=== PATIENT | female | born 1980 | race Caucasian/White ===

== ENCOUNTER 2019-12-15 20:55 | Emergency (ER) | payer OTHER | END 2019-12-15 21:32 | disposition home or self-care (01) | LOC: ER 20:55 | DX: Z11.59 Encounter for screening for other viral diseases (principal) | CPT/HCPCS: 99283; C9803; U0003 ==

== ENCOUNTER 2019-12-24 14:43 | Emergency (ER) | payer OTHER ==
[~2019-12-24] VITALS: Ht 152.4 cm; Wt 54.4 kg
[2019-12-24 14:50] VITALS: BP 155/111
--- NOTE | 2019-12-24 15:15 | NUR ---
COVID SWAB OBTAINED AND SENT TO LAB.
--- NOTE | 2019-12-24 15:25 | NUR ---
Patient discharged to home in stable condition. Written and verbal after care instructions given. Patient verbalizes understanding of instruction.
== END 2019-12-24 15:26 | disposition home or self-care (01) ==
LOC: ER 14:46
DX: Z03.818 Encounter for observation for suspected exposure to other biological agents ruled out (principal)
CPT/HCPCS: 99283; C9803; U0003

== ENCOUNTER 2020-01-11 16:15 | Emergency (ER) | payer OTHER ==
[~2020-01-11] VITALS: Ht 152.4 cm; Wt 54.4 kg
[2020-01-11 16:30] VITALS: BP 129/79
--- NOTE | 2020-01-11 16:51 | NUR ---
COVID SWAB DONE AND SENT TO LAB
--- NOTE | 2020-01-11 16:52 | NUR ---
Patient discharged to home in stable condition. Written and verbal after care instructions given. Patient verbalizes understanding of instruction. Pt ambulatory with a steady gait
== END 2020-01-11 16:52 | disposition home or self-care (01) ==
LOC: ER 16:16
DX: Z11.59 Encounter for screening for other viral diseases (principal)
CPT/HCPCS: 99283; C9803; U0003

== ENCOUNTER 2020-01-18 15:38 | Emergency (ER) | payer OTHER ==
[~2020-01-18] VITALS: Ht 152.4 cm; Wt 54.4 kg
--- NOTE | 2020-01-18 15:56 | NUR ---
COVID SWAB DONE AND SENT TO LAB
--- NOTE | 2020-01-18 15:56 | NUR ---
Patient discharged to home in stable condition. Written and verbal after care instructions given. Patient verbalizes understanding of instruction. Pt ambulatory with a steady gait
[2020-01-18 15:57] VITALS: BP 117/68
== END 2020-01-18 16:10 | disposition home or self-care (01) ==
LOC: ER 15:38
DX: Z11.59 Encounter for screening for other viral diseases (principal)
CPT/HCPCS: 99283; C9803; U0003

== ENCOUNTER 2020-01-21 11:26 | Emergency (ER) | payer OTHER ==
[~2020-01-21] VITALS: Ht 149.9 cm; Wt 58.1 kg
[2020-01-21 11:42] VITALS: BP 138/77
--- NOTE | 2020-01-21 12:31 | NUR ---
covid swab obtained and sent to lab.
--- NOTE | 2020-01-21 12:32 | NUR ---
Patient discharged to home in stable condition. Written and verbal after care instructions given. Patient verbalizes understanding of instruction.
== END 2020-01-21 12:32 | disposition home or self-care (01) ==
LOC: ER 11:30
DX: Z03.818 Encounter for observation for suspected exposure to other biological agents ruled out (principal)
CPT/HCPCS: 99283; C9803; U0003

== ENCOUNTER 2020-01-28 15:26 | Emergency (ER) | payer OTHER ==
[~2020-01-28] VITALS: Ht 149.9 cm; Wt 58.1 kg
[2020-01-28 15:27] VITALS: BP 154/81
--- NOTE | 2020-01-28 16:12 | NUR ---
COVID SWAB DONE AND SENT TO LAB
--- NOTE | 2020-01-28 16:12 | NUR ---
Patient discharged to home in stable condition. Written and verbal after care instructions given. Patient verbalizes understanding of instruction. Pt ambulatory with a steady gait
== END 2020-01-28 16:12 | disposition home or self-care (01) ==
LOC: ER 15:28
DX: Z11.59 Encounter for screening for other viral diseases (principal)
CPT/HCPCS: 99283; C9803; U0003

== ENCOUNTER 2020-12-01 08:00 | Outpatient (CLI) | payer BC ==
[2020-12-01 09:10] LABS: BILIRUBIN,URINE NEGATIVE (NEGATIVE); COLOR,URINE YELLOW (YELLOW); LEUKOCYTE ESTERASE ,URINE NEGATIVE (NEGATIVE); NITRITE, URINE NEGATIVE (NEGATIVE); PROTEIN,URINE NEGATIVE (NEGATIVE); UGLUCOSE NEGATIVE (NEGATIVE); UROBILINOGEN,URINE 0.2 EU/dL (0.2)
[2020-12-01 09:21] LABS: BASOPHILS # (AUTO) 0.1 /CMM (0.0-0.2); BASOPHILS % (AUTO) 0.9 % (0.0-2.0); EOSINOPHILS % (AUTO) 1.3 % (0.0-6.0); HEMATOCRIT 44 % (33-45); HEMOGLOBIN 14.5 g/dL (11.5-14.8); LYMPHOCYTES # (AUTO) 1.8 /CMM (0.8-4.8); LYMPHOCYTES % (AUTO) 32.6 % (20.0-44.0); MEAN CORPUSCULAR HGB CONC 33 g/dl (31.0-36.0); MEAN CORPUSCULAR VOLUME 91 fL (82-100); MONOCYTES # (AUTO) 0.4 /CMM (0.1-1.30); MONOCYTES % (AUTO) 7.7 % (2.0-12.0); NEUTROPHILS # (AUTO) 3.1 /CMM (1.8-8.9); NEUTROPHILS % (AUTO) 57.5 % (43.0-81.0); PLATELET COUNT (AUTO) 310 /CMM (150-450); RED BLOOD CELL COUNT(AUTO) 4.78 MIL/uL (4.0-5.2); WHITE BLOOD COUNT (AUTO) 5.4 K/uL (4.3-11.0)
[2020-12-01 09:39] LABS: FREE T4 (FREE THYROXINE) 0.95 ng/dL (0.76-1.46); THYROID STIMULATING HORMONE 3.137 uIU/mL (0.358-3.74); URIC ACID 5.8 mg/dL (2.6-7.2)
[2020-12-01 09:42] LABS: BACTERIA,URINE Moderate /HPF (None Seen); RBC,URINE NONE SEEN /HPF (0-2); SQUAMOUS EPITHELIAL CELL,UR Few /HPF (None Seen); WBC,URINE 0-2 /HPF (0-3)
[2020-12-01 09:47] LABS: ALBUMIN 3.3 g/dL (3.4-5.0); BILIRUBIN,TOTAL 0.2 mg/dL (0.2-1.0); CALCIUM, SERUM 8.4 mg/dL (8.5-10.1); CREATININE 0.7 mg/dL (0.6-1.3); POTASSIUM 4.2 mmol/L (3.5-5.1); TOTAL PROTEIN, SERUM 7.4 g/dL (6.4-8.2)
[2020-12-02 06:06] LABS: THYROID PEROXIDASE (TPO) AB <9 IU/mL (0-34)
== END 2020-12-01 23:59 | disposition home or self-care (01) ==
LOC: LAB 08:00
PROVIDERS: ATTEND Legal Medicine
DX: I11.0 Hypertensive heart disease with heart failure (principal); E11.9 Type 2 diabetes mellitus without complications; E78.5 Hyperlipidemia, unspecified; E03.9 Hypothyroidism, unspecified; D64.9 Anemia, unspecified; E55.9 Vitamin D deficiency, unspecified; I50.9 Heart failure, unspecified; R53.1 Weakness; Z00.00 Encounter for general adult medical examination without abnormal findings
CPT/HCPCS: 36415; 80053-TC; 80061-TC; 81001; 82306; 82607-TC; 82728-TC; 83540-TC; 84439-TC; 84443-TC; 84550-TC; 85025-TC; 86376; 86800; 87086-TC

== ENCOUNTER 2022-08-23 08:13 | Outpatient (CLI) | payer BC ==
[2022-08-23 08:50] LABS: BASOPHILS % (AUTO) 0.4 % (0.0-2.0); EOSINOPHILS % (AUTO) 2.4 % (0.0-6.0); HEMATOCRIT 43 % (33-45); HEMOGLOBIN 14.1 g/dL (11.5-14.8); LYMPHOCYTES # (AUTO) 1.9 K/uL (0.8-4.8); LYMPHOCYTES % (AUTO) 34.5 % (20.0-44.0); MEAN CORPUSCULAR HGB CONC 33 g/dl (31.0-36.0); MEAN CORPUSCULAR VOLUME 91 fL (82-100); MONOCYTES # (AUTO) 0.4 K/uL (0.1-1.30); MONOCYTES % (AUTO) 6.7 % (2.0-12.0); NEUTROPHILS # (AUTO) 3.1 K/uL (1.8-8.9); PLATELET COUNT (AUTO) 290 K/uL (150-450); RED BLOOD CELL COUNT(AUTO) 4.72 MIL/uL (4.0-5.2); WHITE BLOOD COUNT (AUTO) 5.5 K/uL (4.3-11.0)
[2022-08-23 08:57] LABS: BILIRUBIN,URINE NEGATIVE (NEGATIVE); COLOR,URINE YELLOW (YELLOW); LEUKOCYTE ESTERASE ,URINE NEGATIVE (NEGATIVE); NITRITE, URINE NEGATIVE (NEGATIVE); PROTEIN,URINE NEGATIVE (NEGATIVE); UGLUCOSE NEGATIVE (NEGATIVE); UROBILINOGEN,URINE 0.2 EU/dL (0.2)
[2022-08-23 09:44] LABS: FREE T4 (FREE THYROXINE) 0.95 ng/dL (0.76-1.46); THYROID STIMULATING HORMONE 2.606 uIU/mL (0.358-3.74); URIC ACID 5.5 mg/dL (2.6-7.2)
[2022-08-23 09:54] LABS: ALBUMIN 3.5 g/dL (3.4-5.0); BILIRUBIN,TOTAL 0.2 mg/dL (0.2-1.0); CALCIUM, SERUM 8.6 mg/dL (8.5-10.1); CREATININE 0.8 mg/dL (0.6-1.3); POTASSIUM 3.8 mmol/L (3.5-5.1); TOTAL PROTEIN, SERUM 7.7 g/dL (6.4-8.2)
== END 2022-08-23 23:59 | disposition home or self-care (01) ==
LOC: LAB 08:13
PROVIDERS: ATTEND Legal Medicine
DX: Z00.00 Encounter for general adult medical examination without abnormal findings (principal); E11.9 Type 2 diabetes mellitus without complications; E55.9 Vitamin D deficiency, unspecified; E78.00 Pure hypercholesterolemia, unspecified; E03.9 Hypothyroidism, unspecified; D64.9 Anemia, unspecified
CPT/HCPCS: 36415; 80053-TC; 80061-TC; 82306; 82607-TC; 82728-TC; 83540-TC; 84439-TC; 84443-TC; 84550-TC; 85025-TC